=== PATIENT | female | born 1985 | race Caucasian/White ===

== ENCOUNTER 2023-11-29 11:40 | Outpatient (CLI) | payer BC, SELFPAY | END 2023-11-29 11:41 | disposition home or self-care (01) | LOC: NFLDREF 11-30 09:31 | PROVIDERS: Visit Provider Nurse Practitioner | DX: N30.01 Acute cystitis with hematuria (principal) | CPT/HCPCS: 87086; 87186 ==

== ENCOUNTER 2023-12-25 10:57 | Outpatient (CLI) | payer BC, SELFPAY | END 2023-12-25 10:58 | disposition home or self-care (01) | LOC: NFLDREF 12-26 18:41 | PROVIDERS: Visit Provider Nurse Practitioner Family | DX: R30.0 Dysuria (principal); N94.9 Unspecified condition associated with female genital organs and menstrual cycle | CPT/HCPCS: 87086 ==